=== PATIENT | male | born 1985 | race Caucasian/White ===

== ENCOUNTER 2018-04-20 22:53 | Emergency (ER) | payer OTHER | END 2018-04-21 00:13 | disposition home or self-care (01) | LOC: E/R 22:53 | DX: S39.92XA Unspecified injury of lower back, initial encounter (principal); R40.2142 Coma scale, eyes open, spontaneous, at arrival to emergency department; R40.2252 Coma scale, best verbal response, oriented, at arrival to emergency department; R40.2362 Coma scale, best motor response, obeys commands, at arrival to emergency department; Y09 Assault by unspecified means | CPT/HCPCS: 72100; 99283-25 ==